=== PATIENT | male | born 1970 | race Hispanic/Latino ===

== ENCOUNTER 2017-07-09 22:42 | Emergency (ER) | payer SELFPAY ==
[2017-07-09] MEDS ORDERED: LIDOCAINE HCL 1% 20 ML VIAL ONE (23:29)
[2017-07-09] MEDS ORDERED: TETANUS/DIPHTHERIA TOXOID [ADULT] 0.5 ML VIAL IM ONE (23:29)
== END 2017-07-10 00:33 | disposition home or self-care (01) ==
LOC: EDH 22:42
DX: S61.215A Laceration without foreign body of left ring finger without damage to nail, initial encounter (principal); E11.9 Type 2 diabetes mellitus without complications; W45.8XXA Other foreign body or object entering through skin, initial encounter; Y93.89 Activity, other specified; Y92.89 Other specified places as the place of occurrence of the external cause; Y99.8 Other external cause status
CPT/HCPCS: 12042; 73140; 90471; 90714